=== PATIENT | female | born 1940 ===

== ENCOUNTER → 2021-10-13 09:24 | Outpatient (BNVA) | payer MEDICARE, OTHER, MEDICAID, SELFPAY | PROVIDERS: PCP Family Medicine Geriatric Medicine; Visit Provider Psychiatry & Neurology Neurology | DX: G20 Parkinson's disease (principal); G25.81 Restless legs syndrome | CPT/HCPCS: 99212 ==

== ENCOUNTER → 2023-10-04 09:24 | Outpatient (BNVA) | payer OTHER, MEDICAID, SELFPAY | PROVIDERS: PCP Family Medicine Geriatric Medicine; Visit Provider Psychiatry & Neurology Neurology ==

== ENCOUNTER 2023-12-06 09:31 | Outpatient (AMB) | payer MEDICARE, OTHER, MEDICAID, SELFPAY ==
--- NOTE | 2023-12-06 09:35 | A.OFFVIS_ITS ---
Intake Vital Signs 12/06/23 09:39 Height 5 ft 6 in Weight 184 lb BMI 29.7 BP 118/68 Blood Pressure Location Rt brachial Position Sitting Respiration 16 Pulse 75 Pulse Source Pulse Oximeter Pulse Oximetry (%) 96 Oxygen Delivery Method Room Air Intake Visit Reasons: follow up-Conf Intake Note: Pt presents for 14 month follow up for Parkinson's. Corporate Events Director Required: No Allergies No Known Allergies Allergy (Verified 12/06/23 09:39) HPI HPI Comments History of Present Illness Details ?83yr-old female with parkinsons and restless legs syndrome presents for follow-up after 2 years . she is in a correction an dis unaccompanied. she rpeorts worsening of her restless legs syndrome. SHe feels her parkinsons is mildly worse. ? This left-handed pt reports she is still needing assist with ADLs. ??? No choking. No drooling. ??? She endorses orthostatic lightheadedness- immediately after standing, lasts briefly. ??? Can feel stiffness in her legs. ??? She has BUE tremor- stable. Her legs can feel shaky. ??? she is in a wheel chair now but says she can walk . Mornings are harder. she had a fall last year- had left shoulder fracture ??? No hallucinations. ? Memory is stable. ??? No drop attacks. ??? Has not been feeling depressed or anxious. No compulsive behaviors. ??? She is prone to constipation- managed most of the time, but can have break through constipation which is managed by bowel regimen. [facility] Medical History (Updated 12/06/23 @ 10:01 by Erna Barrios MD) Parkinson's disease without dyskinesia Sleep disorder Tremors of nervous system Stroke GERD (gastroesophageal reflux disease) Hyperlipidemia Heart disease Restless legs syndrome Parkinsons disease HTN (hypertension) Arthritis Depression Surgical History History of hysterectomy Family History Sister COPD (chronic obstructive pulmonary disease) Social History Alcohol intake: never Patient Tobacco Use Status: Never used Tobacco Physical Exam Vital Signs: Last Vital Signs Pulse 75 12/06/23 09:39 Resp 16 12/06/23 09:39 BP 118/68 12/06/23 09:39 Pulse Ox 96 12/06/23 09:39 Oxygen Delivery Method Room Air 12/06/23 09:39 BMI result Body Mass Index 29.7 Const General: cooperative, healthy appearing and no acute distress Nutritional Appearance: average body habitus Orientation/consciousness: patient oriented x3 HEENT Head: Yes normal to inspection Neuro Other: Mild decreased blink and facial expression - facial asymmetry - decreased movement on left mild lower lip tremors, tongue tremors , slow tongue movements Voice- normal No tremors Fine Finger movements - severely decreased mikal l>R Alternating hand movements - decreased mikal Hand movements - decreased mikal Foot taps- decreased mikal No cog wheel rigidity she could not get up from her wheel chair General: patient oriented x3 Cranial nerves: Yes CN's II-XII intact bilaterally, Yes Bilaterally intact EOM present, Yes Normal facial strength present and Yes Midline tongue present Cognition (Neuro): abnormal cognition (repeats questions frequently) Motor exam (neuro): 5/5 motor strength present throughout and Normal motor muscle tone present throughout Coordination: [id number] test normal Assessment & Plan Assessment & Plan (1) Parkinson's disease without dyskinesia: Code(s): G20.A1 - Parkinson's disease without dyskinesia, without mention of fluctuations (2) Restless legs syndrome: Code(s): G25.81 - Restless legs syndrome Plan Increase fluids continue sinemet 25/100 1.5 tabs 5 times a day Increase requip 0.5 mg - 2 tabs tid oxycodone 5mg as needed Increase fluids Miralax as needed for constipation Increase physical activity PT for gait training Coding Level of Care Code Est Pt Level 4 (49153) Diagnoses Parkinson's disease without dyskinesia G20.A1 Restless legs syndrome G25.81
[2023-12-06 09:39] VITALS: BP 118/68; PULSE 75; RESP 16; O2SAT 96; BMI 29.7
== END 2023-12-06 10:09 | disposition home or self-care (01) ==
PROVIDERS: PCP Family Medicine Geriatric Medicine; Visit Provider Psychiatry & Neurology Neurology
DX: G20.A1 Parkinson's disease without dyskinesia, without mention of fluctuations (principal); G25.81 Restless legs syndrome
CPT/HCPCS: 99214

== ENCOUNTER → 2023-12-06 09:31 | Outpatient (BNVA) | payer OTHER, MEDICAID, SELFPAY | PROVIDERS: PCP Family Medicine Geriatric Medicine; Visit Provider Psychiatry & Neurology Neurology ==

== ENCOUNTER 2024-05-03 14:39 | Outpatient (AMB) | payer MEDICARE, OTHER, MEDICAID, SELFPAY ==
--- NOTE | 2024-05-03 14:57 | A.OFFVIS_ITS ---
Vital Signs 05/03/24 15:01 Height 5 ft 6 in BP 126/80 Blood Pressure Location Rt brachial Position Sitting Respiration 17 Pulse 68 Pulse Source Pulse Oximeter Temp 96 F L Pulse Oximetry (%) 96 Oxygen Delivery Method Room Air Comment Pt w/c bound- unable to get weight Intake Visit Reasons: 4 month F/U - Confirmed Intake Note: Pt presents to the office for a 5 month follow up for Parkinson's. Pt reports she has recently started drooling and has not been sleeping well. Train Caller Required: No Allergies No Known Allergies Allergy (Verified 05/03/24 15:01) HPI Comments Details: ?84yr-old female with parkinsons and restless legs syndrome presents for follow-up .she has good days and some bad days . she has about 3-4 bad days - she describes as feeling tired and fatigued.she is slower towards the later part of the day . During daytime she uses a walker. she reports worsening of her restless legs syndrome.I increased her ropinirole to 1mg tid but she did not increase it. SHe feels her parkinsons is mildly worse. ? This left-handed pt reports she is still needing assist with ADLs. ??? No choking. No drooling. ??? She endorses orthostatic lightheadedness- immediately after standing, lasts briefly. ??? Can feel stiffness in her legs. ??? She has BUE tremor- stable. Her legs can feel shaky. ??? she is in a wheel chair now but says she can walk . Mornings are harder. she had a fall last year- had left shoulder fracture ??? No hallucinations. ? Memory is stable. ??? No drop attacks. ??? Has not been feeling depressed or anxious. No compulsive behaviors. ??? She is prone to constipation- managed most of the time, but can have break through constipation which is managed by bowel regimen. [facility] Medical History Parkinson's disease without dyskinesia Sleep disorder Tremors of nervous system Stroke GERD (gastroesophageal reflux disease) Hyperlipidemia Heart disease Restless legs syndrome Parkinsons disease HTN (hypertension) Arthritis Depression Surgical History History of hysterectomy Family History Sister COPD (chronic obstructive pulmonary disease) Social History Alcohol intake: never Patient Tobacco Use Status: Never used Tobacco Physical Exam Vital Signs: Last Vital Signs Temp 96 F L 05/03/24 15:01 Pulse 68 05/03/24 15:01 Resp 17 05/03/24 15:01 BP 126/80 05/03/24 15:01 Pulse Ox 96 05/03/24 15:01 Oxygen Delivery Method Room Air 05/03/24 15:01 Const General: cooperative, healthy appearing and no acute distress Nutritional Appearance: average body habitus Orientation/consciousness: patient oriented x3 HEENT Head: Yes normal to inspection Neuro Other: Mild decreased blink and facial expression - facial asymmetry - decreased movement on left slow tongue movements Voice- normal No tremors Fine Finger movements - severely decreased mikal l>R Alternating hand movements - decreased mikal Hand movements - decreased mikal Foot taps- decreased mikal No cog wheel rigidity she could not get up from her wheel chair General: patient oriented x3 Cranial nerves: Yes CN's II-XII intact bilaterally, Yes Bilaterally intact EOM present, Yes Normal facial strength present and Yes Midline tongue present Motor exam (neuro): 5/5 motor strength present throughout and Normal motor muscle tone present throughout Coordination: [id number] test normal Assessment & Plan Assessment & Plan (1) Parkinson's disease without dyskinesia: Code(s): G20.A1 - Parkinson's disease without dyskinesia, without mention of fluctuations Category: Medical (2) Restless legs syndrome: Code(s): G25.81 - Restless legs syndrome Category: Medical Plan Increase fluids continue sinemet 25/100 1.5 tabs 5 times a day Increase requip 0.5 mg - 2 tabs tid oxycodone 5mg as needed Increase fluids Miralax as needed for constipation Increase physical activity PT for gait training Coding Level of Care Code Est Pt Level 4 (13024) Complex EM visit Add On G2211 Diagnoses Parkinson's disease without dyskinesia G20.A1 Restless legs syndrome G25.81
[2024-05-03 15:01] VITALS: BP 126/80; PULSE 68; RESP 17; TEMP 35.5; O2SAT 96
== END 2024-05-03 15:21 | disposition home or self-care (01) ==
PROVIDERS: PCP Family Medicine Geriatric Medicine; Visit Provider Psychiatry & Neurology Neurology
DX: G20.A1 Parkinson's disease without dyskinesia, without mention of fluctuations (principal); G25.81 Restless legs syndrome
CPT/HCPCS: 99214

== ENCOUNTER → 2024-05-03 14:39 | Outpatient (BNVA) | payer OTHER, MEDICAID, SELFPAY | PROVIDERS: PCP Family Medicine Geriatric Medicine; Visit Provider Psychiatry & Neurology Neurology ==